=== PATIENT | female | born 1950 | race Caucasian/White ===

== ENCOUNTER 2024-03-05 14:01 | Outpatient (REF) | payer OTHER, SELFPAY | END 2024-03-05 14:02 | disposition home or self-care (01) | LOC: HO.BBR 14:01 | PROVIDERS: Visit Provider Internal Medicine Hematology | DX: D45 Polycythemia vera (principal) | CPT/HCPCS: 85018; 99195 ==

== ENCOUNTER 2024-04-06 09:59 | Outpatient (REF) | payer OTHER, SELFPAY | END 2024-04-06 10:00 | disposition home or self-care (01) | LOC: HO.BBR 09:59 | PROVIDERS: Visit Provider Internal Medicine Hematology | DX: D45 Polycythemia vera (principal) | CPT/HCPCS: 85014; 85018; 99195 ==

== ENCOUNTER 2024-05-06 09:06 | Outpatient (REF) | payer OTHER, SELFPAY | END 2024-05-06 09:07 | disposition home or self-care (01) | LOC: HO.BBR 09:06 | PROVIDERS: Visit Provider Internal Medicine Hematology | DX: D45 Polycythemia vera (principal) | CPT/HCPCS: 85018; 99195 ==

== ENCOUNTER 2024-06-10 09:03 | Outpatient (REF) | payer OTHER, SELFPAY | END 2024-06-10 09:04 | disposition home or self-care (01) | LOC: HO.BBR 09:03 | PROVIDERS: Visit Provider Internal Medicine Hematology | DX: D45 Polycythemia vera (principal) | CPT/HCPCS: 85018; 99195 ==

== ENCOUNTER 2024-07-09 08:55 | Outpatient (REF) | payer OTHER, SELFPAY ==
--- OUTSIDE RECORDS SUMMARY | 2024-07-09 09:07 | XMS_ITS ---
Author Organization [facility] Address [address] [place] [address] Care Team Providers Care Truck Jumper Name Role Phone Georgi Miller MD Primary Care Provider Unavailab Khanh Diaz Unavailable [phone] Mae Montiel Unavailable [phone] REASON FOR VISIT ON Encounters Encounter Location Date Provider Diagnosis [facility] [address] [place] [address] 08/09/2023 Mae Montiel Plan Of Treatment No Information Progress Notes * Thelma GONZALEZDOB:1950 (72 yo F)Acc No.[id number]:08/09/2023 Patient:?Carlos Thelma :1950???Age:72 Y???Sex:Female Address:[address] [place] [address] [place], [address] * true * Date:? Generated for Printi ng/Fajeanieg/eTransmitting on:?07/09/2024 09:07 AM EST
--- OUTSIDE RECORDS SUMMARY | 2024-07-09 09:07 | XMS_ITS ---
[facility] Address [address] [facility] [place] [place] [address] Care Team Providers Care Material Yard Clerk Name Role Phone Georgi Miller MD Primary Care Provider Unavailab Khanh Diaz Unavailable [phone] Allergies Allergen (clinical drug ingredient) Drug/Non Drug Allergy documented on EMR Reaction Allergy Type Onset Date Status morphine Morphine nausea Drug Allergy Active REASON FOR VISIT Painful Toe(s), Open sore Medications Medication SIG (Take, Route, Frequency, Duration) Notes Start Date End Date Status Levothyroxine Sodium Active Stool Softener Activ e Simvastatin Active Aspir-81 Active Synthroid Not-Taking Social History Tobacco Use: Social History Observation Description Date Details (start date - stop date) Never Smoker NA - NA Tobacco Use/Smoking Question Answer Notes Are you a: nonsmoker Additional Findings: Tobacco Non-User Current no n-smoker Alcohol Screen Question Answer Notes Did you have a drink contain ing alcohol in the past year? Yes How often did you have a dri nk containing alcohol in the past year? 2 to 4 times a month (2 points) Points 2 Interpretation Negative Tobacco use other than smoking: Question Answer Notes Are you an other tobacco user? No Problems Problem Type SNOMED Code ICD Code Onset Dates Problem Status W/U Status Risk Notes Problem Atherosclerosis of diomede arteries of the extremities (171435893404255) Atherosclerosis of diomede artery of both lower extremities, with unspecified presence of clinical manifestation (I70.203) Active confirmed Problem Acquired hammer toe of left foot (4473817793792284) Other hammer toe(s) (acquired), left foot (M20.42) Active confirmed Problem Localized, primary osteoarthritis of the ankle and/or foot (867471107) Arthritis of joint of lesser toe, left (M19.072) Active confirmed Vital Signs Height 5ft 6in in 09/19/2023 Weight 146 lbs 09/19/2023 BMI 23.56 kg/m2 09/19/2023 Procedures Procedure Date Ordered Date Performed Result Body Sit e 34583- Debride <25 sq cm 09/19/2023 N/A Encounters Encounter Location Date Provider Diagnosis [facility] [place] [address] [address] 09/19/2023 Khanh Tran Atherosclerosis of n ative artery of both lower extremities, with unspecified presence of clinical manifestation I70.203 ; Ischemic ulcer of left foot, limited to breakdown of skin L97.521 ; Pain in left toe(s) M79.675 ; Other hammer toe(s) (acquired), left foot M20.42 ; Arthritis of joint of lesser toe, left M19.072 and Subluxation of metatarsophalangeal joint of toe, initial encounter S93.149A Assessments Encounter Date Diagnosis (ICD Code) Assessment Notes Treatment Notes Treatment Clinical Notes Section Notes 09/19/2023 Atherosclerosis of diomede artery of both lower extremities, with unspecified presence of clinical manifestation (ICD-10 - I70.203) 09/19/2023 Ischemic ulcer of le ft foot, limited to breakdown of skin (ICD-10 - L97.521) Response to treatment,Clarissa pplicable Patient Educated with: WOUND CARE INSTRUCTIONS. pdf (WOUND CARE INSTRUCTIONS. pdf) 09/19/2023 Pain in left toe(s) (ICD-10 - M79.675) 09/19/2023 Other hammer toe(s) (acquired), left foot (ICD-10 - M20.42) 09/19/2023 Arthritis of joint o f lesser toe, left (ICD-10 - M19.072) 09/19/2023 Subluxation of metatarsophalangeal joint of toe, initial encounter (ICD-10 - S93.149A) Plan Of Treatment Treatment Notes Assessment Notes Ischemic ulcer of left foot, limited to breakdown of skin Patient Educated with: WOUND CARE INSTRUCTIONS.pdf (WOUND CARE INSTRUCTIONS.pdf) Pending Test Test Name Order Date X ray : Foot, left 3V 09/19/2023 03566- Debride <25 sq cm 09/19/2023 Next Appt Details Follow Up: 2 Weeks, Reason: Procedure Notes * Category Sub-Category Detail Notes Debride skin< 25 sq cm Open wound ISCHEMIC: Physician of record performed open wound selective debridement of first 25 sq cm or less, of devitilized necrotic/nonviable soft tissue, fibrin, and exudate extending from the epidermis through the dermis, utilizing sharp dissection with sterile 15 blade, and/or tissue nippers. Sterile antibiotic dressing applied, ANESTHESIA was accomplished TOPICALLY with Lidocaine Hydrochloride Jelly 2 percent. Hemostasis was achieved through direct pressure. Post debridement measurements: 6mm x 5mm x 2mm. Character of the wound post debridement is stable (61373) Progress Notes * Thelma GONZALEZDOB:1950 (72 yo F)Acc No.[id number]:09/19/2023 Progress Notes Patient:?Thelma Gonzalez Provider:?Khanh Tran DPM :1950???Age:72 Y???Sex:Female D ate:09/19/2023 Address:[address] [place] [address] [facility] Pcp:Georgi Miller MD Subjective: * Chief Complaints: * ???Painful Toe(s)Open sore * HPI: ???At Risk footcare:?Pt States Last PCP Visit:?Date?09/12/2023 ???Toe pain:?Nature:?tenderness.?Location:?Left foot , 2nd toe.?Duration:?2 months.?Onset/Cause:?shoe gear?.?Course:?worse.?Aggrevated by:?any pressure, shoes.?Treatments:?rest/alter normal daily activity, change in shoes , medication ( Bactrim from PCP, David acid patches ).?Skin problems:?Treatments:?none.? * ROS:?General/Constitutional:?Nausea?denies.?Vomiting?denies.?Hunger Thirst?denies.?Loss appetite?denies.?Chills?denies.?Fatigue?denies.?Fever?denies.?Night Sweats?denies.?Unexplained weight loss?denies.?Unexplained weight gain?denies.?HEENTM:?Dentures?denies.?Dizziness?denies.?Glasses/contacts?admits.?Retinopathy?de nies.?Blurred/double vision?denies.?TMJ?denies.?Discharge/drainage?denies.?Implants?denies.?Sore throat?denies.?Dental implants?denies.?Hard of hearing ?denies.?Difficulty chewing/swallowing/speaking?denies.?Nose bleeds?denies.?Sore mouth?denies.?Respiratory:?On Oxygen?denies.?Pneumonia/pleurisy?denies.?Bronchitis?denies.?Emphysema?denies.?C oughing?denies.?Cough blood?denies.?Shortness of breath?denies.?Wheezing?denies.?Cardiovascular:?Pacemaker?denies.?MVP?denies.?WPW?denies.?CHF?denies.?Heart attack?denies.?Septal defect?denies.?Rapid beat?denies.?Chest pain ?denies.?Atrial Fib.?denies.?Murmur/Palpitations?denies.?Gastrointestinal:?Hemorrhoids?denies.?Stomach/Abdominal pain?denies.?Dark blood stool?denies.?Irritable bowel ?denies.?Constipation?admits.?Diarrhea?denies.?Hematology:?Swelling?admits.?Clots?denies.?Varicose Veins?admits.?Bruising?denies.?Bleeding problem?denies.?Genitourinary:?Blood urine?denies.?Frequent/Painfu/urination/bladder control?denies.?Kidney stones?denies.?Infection (UTI)?denies.?Nephropathy?denies.?sex trans dis (STD)?denies.?Prostate?denies.?Musculoskeletal:?Hammertoes?admits.?Bunions?denies.?Back Pain?denies.?Muscle Cramps/ Resting?denies.?Muscle cramps / walking?denies.?Generalized aches and pains?denies.?Weakness?denies.?Integ.:?Velarde?denies.?Scars?denies.?Corns/calluses?admits.?Ingrown nails?denies.?Painful nails?denies.?Open Sores?denies.?Rashes?denies.?Neurologic:?Difficulty sleeping?denies.?Brain disorder?denies.?Numbness?denies.?Balance trouble?denies.?Confusion?denies.?Fainting/blackouts?denies.?Tingling?denies.?Tr emors?denies.? * Medical History:? * Surgical History:?C section [id number] gall bladder 04/2023 * Hospitalization/Major Diagno stic Procedure:?No Hospitalization History. * Family History:?Mother: dece ased, diagnosed with Other malignant neoplasm of unspecified site.?Father: , diagnosed with Unspecified heart disease.? * Social History:?Tobacco Use:?Tobacco Use/Smoking?Are you a:?nonsmoker ?Additional Findings: Tobacco Non-User?Current non-smoker ?Tobacco use other than smoking?Are you an other tobacco user??No ???Drugs/Alcohol:?Drugs?Have you used drugs other than those for medical reasons in the past 12 months??No ?Alcohol Screen?Did you have a drink containing alcohol in the past year??Yes ?How often did you have a drink containing alcohol in the past year??2 to 4 times a month (2 points) ?Points?2 ?Interpretation?Negative ???Miscellaneous:?Caffeine: 1-2 cups per day. ?Children: yes. ?Exercise: yes, walking. ?Marital status: . 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 * Medications:?TakingStool Sof tener Aspir-81 Simvastatin Levothyroxine Sodium Taking Stool Softener Taking Aspir-81 Taking Simvastatin Taking Levothyroxine Sodium Not-Taking/PRNSynthroid Medication List reviewed and reconciled with the patientNot-Taking/PRN Synthroid Medication List reviewed and reconciled with the patient * Allergies:?Morphine: nauseay es[Allergies Verified] Objective: * Vitals:?Ht: 5ft 6in, Wt:146, BMI:23.56, Shoe size: 9.5, Ht-cm: 167.64 cm, Wt-k.22 kg. * Examination: ???Vascular: ?DP PULSES:? 0/4, B/L.?PT PULSES:? 0/4, B/L.?CAPILLARY FILL TIME:? delayed, all digits, B/L.?SKIN TEMPERTURE GRADIENT OF THE LOWER EXTERMITIES:? decreased, cool to cool, proximal to distal, B/L.?HAIR GROWTH/TEXTURE/ELASTICITY/TURGOR:? decreased, B/L.?PIGMENTATION:?brawny, B/L.?EDEMA:?2/4 , non-pitting , without aching pain , Leg(s) , Ankle(s) , Foot.?CLAUDICATION:?denies, B/L.?REST PAIN:?denies, B/L.?Dermatologic: ?SKIN FINDINGS:?Skin exam reveals no masses, nor excrescences. The interspaces are clear, B/L.?ULCER:? LOCATION, Dorsal, T1, LEFT, SIZE, 5mm X 3mm X 2mm, BASE, granular, RIM, hyperkeratotic, UNDERMINING, absent, TRACKING, Full thickness breakdown of skin, DRAINAGE, serosanguineous, mild, NECROTIC TISSUE, loosely-adherent, yellow slough, MALODOR, absent, CALOR, absent, ERYTHEMA, absent, PAIN ON PALPATION, present.?Orthopedic: ?MUSCLE STRENGTH:?5/5 all groups in a symmetrical fashion, B/L.?DIGITAL DEFORMITIES:?Digital contracture, PIPJ, 2nd toe, Left, non- reducible with WB or to push-up test , MPJ Contracture/Dorsal subluxation , non-reducible with WB or to push-up test , medial over lapping - T1 , Reveals pain/swelling/redness/enlargement of PIPJ, T1.?FOOTWEAR:? shoe gear properties exacerbate patients foot/toe deformity.?Neurological: ?SENSORY:?Neurological exam reveals intact sensorium, pain sensation normal, vibration sensation intact, pinprick sensation is normal in the lower extremities, Pt denies, anesthesia, burning, paresthesia, tingling, B/L.?General Examination: ?GENERAL APPEARANCE:?Reveals a pleasant, alert, well nourished, well- developed, well hydrated individual, who demonstrates proper attention to hygiene/body habitus, and is in no acute distress, Pt serves as own historian for office visit today.?ORIENTED:?person, place, and time.?X-Rays - IMAGING REPORT: ?Clinical Indication(s):? Evaluate Biomechanical Deformity, Evaluate for Osteomyelitis.?Views:? 3 views of Foot, AP, LO, MO, LEFT.?Findings:? normal bone and soft tissue density consistent for patients age and sex.?Digits:? show asymmetrical joint space narrowing at the PIPJ consistent with clinical finding of hammertoe deformity, show dorsal dislocation of MTPJ.?Fracture:? Negative fractures identified.?Signs of Osteomyelitis?Absent.? Assessment: * Assessment: 1.?Atherosclerosis of diomede artery of both lower extremities, with unspecified presence of clinical manifestation - I70.203?2.?Ischemic ulcer of left foot, limited to breakdown of skin - L97.521 (Primary), Response to treatment,Nonapplicable?3.?Pain in left toe(s) - M79.675?4.?Other hammer toe(s) (acquired), left foot - M20.42, Acute problem, Complicated w/ Multiple Tx Options(4),Dx New problem, Prognosis Uncertain (4)?5.?Arthritis of joint of lesser toe, left - M19.072?6.?Subluxation of metatarsophalangeal joint of toe, initial encounter - S93.149A? Plan: * Treatment: 2.?Pain in left toe(s)?Imaging: X ray : Foot, left 3V * Procedures:?Debride skin< 25 sq cm:?Open wound?ISCHEMIC: Physician of record performed open wound selective debridement of first 25 sq cm or less, of devitilized necrotic/nonviable soft tissue, fibrin, and exudate extending from the epidermis through the dermis, utilizing sharp dissection with sterile 15 blade, and/or tissue nippers. Sterile antibiotic dressing applied, ANESTHESIA was accomplished TOPICALLY with Lidocaine Hydrochloride Jelly 2 percent. Hemostasis was achieved through direct pressure. Post debridement measurements: 6mm x 5mm x 2mm. Character of the wound post debridement is stable (83199).? * Procedure Codes:?93870 X-RAY EXAM OF LEFT FOOT 3V, Modifiers: 26 , [id number] ACTIVE WOUND CARE/20 CM OR < * Preventive Medicine:? ??Counseling:?Discussion:?-04: Office or other outpatient visit for the evaluation and management of a new patient, which required a medically appropriate history and/or examination and MODERATE level of DECISION MAKING for: 1 OR MORE CHRONIC PROBLEM(S) THATS WORSENING, 2 STABLE CHRONIC PROBLEMS, A NEWLY DIAGNOSED PROBLEM WITH UNCERTAIN PROGNOSIS, AN ACUTE COMPLICATED INJURY WITH MULTIPLE TREATMENT OPTIONS, OR AN ACUTE PROBLEM WITH ACCOMPANYING SYSTEMIC SYMPTOMS, THAT POSE(S) A MODERATE RISK OF MORBIDITY. THIS CONDITION MAY ALSO INCLUDE RX DRUG MANAGEMENT, OR A DECISON FOR MINOR SURGERY. The visit on the day of the encounter encompassed interpreting the data and educating the patient as to the nature of their condition, treatment options available according to their individual PMH, meds, allergies, and overall health/living conditions, as well as any potential risks or complications that may occur from a failure to adhere to, and participate in, the recommended course of therapy. The discussion included a complete verbal, and/or written explanation of the examination results, any x-rays taken, the proposed diagnosis, and outline of the treatment plan. A schedule for future care needs was also explained. The patient verbalized an understanding of the instructions at this time and agreed to be an active participant in their treatment. If the patient should think of any questions or concerns after the visit, I have encouraged the patient to call the office.?Digital Surgery:?Digital surgery was discussed with the patient, including the risks of surgery(below), vs not having surgery (persistent pain, deformity, risk for skin ulceration/infection, loss of toe), the potential surg complications, the anesthesia, and the usual post-op course. No guarentees were given. We discussed the potential procedure complications including, but not limited to: pain, swelling, bleeding, scarring, numbness, infection, delayed/non healing, floppy/unstable/shorthened toe, recurrence, failure of the procedure, overcorrection leading to plantarflexed/downward positioned toe, recurrence, need for further surgery, as well as the possibility for loss of the toe itself. We discussed the use of local anesthesia, and the usual post-op course for healing. No guarentees were given. The patient verbally indicated a full understanding of the above conversation, and any other of their questions were answered to their satisfaction. Alternatives to the procedure were also discussed, including conservative care. I also discussed the usual post-operative course and gave no guarantees regarding outcome.?Digital Treatment:?I explained to the patient the possible etiologies of Hammertoes, including genetics/foot type/shoegear/activity level/exercise routine and the risks/benefits of all the different treatment options for their pain including: No treatment at all, Rest, Ice, New/supportive/wider/deeper Shoegear, Digital Padding/Strapping/Taping/Bracing/Gel protective sleeves, Foot/Ankle AFO Bracing, Stretching exercises, Deep Tissue Massage, Arch support/shoe inserts with splay metatarsal padding, and Custom orthoses. I insisted that any digital devices be removed daily and not worn overnight for safety. The patient is to carefully examine the toes daily for any skin irritation while using any splinting or padding device. The advantages and disadvantages of each option were discussed and the patients questions re: shoegear, padding, custom vs prefabricated inserts, activity level, and consistency in home treatment regimens for optimal success were answered to their verbally confirmed satisfaction.?Shoe Gear Counseling:?The patient and I reviewed the types of shoes they should be wearing. My recommendation included obtaining a well-fitted shoe with a good supportive, non-foldable nor twistable sole, plenty of toe/room for the forefoot, and proper arch support. Based on todays examination, I recommended the patient look for new shoes, by having their feet professionally measured. We discussed that generally the best time of the day for a shoe fitting is the afternoon. Different shoes types and brands to best match the patients occupation and vocation were discussed. Specific brand selection will be up to the patient, their individual foot condition/deformities, and fit. The patient and I reviewed the standard new shoe break in period by wearing them for a few hours a day while checking for redness or sores as wear time is increased. The patient verbally confirmed to understanding the information discussed.?Ulcer:?A detailed plan of care was reviewed with the patient. We emphasized the fact that the patient takes on an active participating role in the treatment process and emphasized to them that they are an included, valued, and important member of the wound healing team in order to reach an expedient successful outcome. The patient agreed to follow their medically recommended diet while increasing their protein intake if safely able to do so, maintain proper bodily hydaration, abide by weight-bearing restrictions at all times, quit all current smoking habits if any, and diligently follow any/all dressing change instructions. It was clearly made known to the patient that if they fail to do their part, they will likely extend their course of treatment as well as possibly increase their risk of adverse events including amputation. The patient was instructed on importance of proper wound care consisting of pressure reduction, and proper maintainance of a moist wound environment. The patient is to cleanse the wound with warm soapy water/peroxide/saline, or betadine BID based on product availability. The patient is to apply ( Neosporin, Polysporin, or Triple, ) Antibiotic to the wound and cover with a DSD as directed. The patient was instructed to change dressings according to orders, or PRN saturation, leaks. The patient was instructed to monitor and report any signs or symptoms of infection or any untoward reactions. Precautions Taken: Offloading/Pressure reduction via rest/ limited activity to essential to daily life only, shoe modification, accommodative padding, sharp debridement, and take/apply medication as directed, Debridement frequency as indicated.? * Follow Up:?2 Weeks * Images: * Sign off status: Completed true * Provider:?Khanh Tran DPM Date:?2023 Generated for Uriah mendoza/Richard/Abdielitting on:?07/09/2024 09:06 AM EST History and Physical Notes * HPI (History of Present Illness) Category Sub-Category Detail Notes Category Not es Toe pain Nature: tenderness Location: Left foot , 2nd toe Duration: 2 months Onset/Cause: shoe gear? Course: worse Aggravated by: any pressure, shoes Treatments: rest/alter normal da raymon activity, change in shoes , medication ( Bactrim from PCP, David acid patches ) Skin problems Treatments: none At Risk footcare Pt States Last PCP Visit: Date: 4 Examination Category Sub-Category Detail Notes Category Not es Neurological SENSORY: Neurological exa m reveals intact sensorium, pain sensation normal, vibration sensation intact, pinprick sensation is normal in the lower extremities, Pt denies, anesthesia, burning, paresthesia, tingling, B/L Dermatologic SKIN FINDINGS: Skin exam reveal s no masses, nor excrescences. The interspaces are clear, B/L ULCER: LOCATION, Dorsal, T1 , LEFT, SIZE, 5mm X 3mm X 2mm, BASE, granular, RIM, hyperkeratotic, UNDERMINING, absent, TRACKING, Full thickness breakdown of skin, DRAINAGE, serosanguineous, mild, NECROTIC TISSUE, loosely-adherent, yellow slough, MALODOR, absent, CALOR, absent, ERYTHEMA, absent, PAIN ON PALPATION, present Orthopedic FOOTWEAR: shoe gear proper ties exacerbate patients foot/toe deformity DIGITAL DEFORMITIES: Digital contracture , PIPJ, 2nd toe, Left, non-reducible with WB or to push-up test , MPJ Contracture/Dorsal subluxation , non-reducible with WB or to push-up test , medial over lapping - T1 , Reveals pain/swelling/redness/enlargement of PIPJ, T1 MUSCLE STRENGTH: 5/5 all groups in a symmetrical fashion, B/L General Examination GENERAL APPEARANCE: Reveals a pleasant, alert, well nourished, well-developed, well hydrated individual, who demonstrates proper attention to hygiene/body habitus, and is in no acute distress, Pt serves as own historian for office visit today ORIENTED: person, place, and t ajay Vascular DP PULSES(B): 0/4, B/L PT PULSES(B): 0/4, B/L CAPILLARY FILL TIME: delayed, all digits , B/L TEMPERTURE GRADIENT(C): decreased, cool to cool, proximal to distal, B/L TROPHIC CONDITION-TEXTURE/ELASTICITY/TURGOR/HAIR GROWTH(B): decreased, B/L EDEMA(C): 2/4 , non-pitting , without aching pain , Leg(s) , Ankle(s) , Foot CLAUDICATION(C): denies, B/L REST PAIN: denies, B/L PIGMENTATION: brawny, B/L X-Rays - IMAGING REPORT Findings: normal b one and soft tissue density consistent for patients age and sex Fracture: Negative fractures i dentified Signs of Osteomyelitis Absent Digits: show asymmetrical brenton int space narrowing at the PIPJ consistent with clinical finding of hammertoe deformity, show dorsal dislocation of MTPJ Views: 3 views of Foot, AP, LO, MO, LEFT Clinical Indication(s): Evaluate Biomech anical Deformity, Evaluate for Osteomyelitis
--- OUTSIDE RECORDS SUMMARY | 2024-07-09 09:07 | XMS_ITS | Continuity of Care Document ---
Author Organization [facility] Address [address] [place] [address]- Care Team Providers Care Flush Tester Name Role Phone Georgi Cali MD Primary Care Physician Encounter [facility] NBR [id number] Date(s): 05/26/24 - 06/25/24 [facility] Care [address] [place] [address] Encounter Type: Triage Allergies, Adverse Reactions, Alerts Substance Criticality Severity Reaction Reaction Severity Status morphine Unable to assess criticality Persistent Moderate Active Medications anastrozole 1 mg oral tablet 1 tablet = 1 mg, By Mouth, Daily, # 90 tablet, 3 Refills, Maintenance, 03/12/24 9:29:00 AM EDT, Tablet, [facility]/pharmacy #[id number], Partial fill upon patient request if the prescription is for a schedule II opioid drug., 167, cm, 02/10/24 9:47:00 EDT, Height, 67.4, kg, 02/10/24 9:47:00 EDT, Dry Weight Start Date: 03/12/24 Status: Ordered Quantity: 90.0 Unit: tablet Repeat number: 4 aspirin 81 mg oral tablet 1 tablet = 81 mg, By Mouth, Daily, # 30 tablet, 0 Refills, Maintenance, 05/20/23 10:01:00 AM EDT, Tablet, Partial fill upon patient request if the prescription is for a schedule II opioid drug. Start Date: 05/20/23 Status: Ordered Quantity: 30.0 Unit: tablet Repeat number: 1 Colace Clear = 50 mg, By Mouth, 2 times a day, 0 Refills, Maintenance, 02/10/24 10:17:00 AM EDT, Partial fill upon patient request if the prescription is for a schedule II opioid drug. Start Date: 02/10/24 Status: Ordered Repeat number: 1 ivermectin 1% topical cream 45 Gm, 0 Refill(s), APPLY EVERY DAY FACE ROSACEA., 0 Refills, 06/17/24 2:20:00 PM EST, Partial fillupon patient request if the prescription is for a schedule II opioid drug. Start Date: 06/17/24 Status: Ordered Repeat number: 1 levothyroxine 0.1 mg oral tablet 1 tablet = 100 mcg, By Mouth, Daily in AM, 0 Refills, Maintenance, 01/02/17 10:33:57 AM EDT Start Date: 01/02/17 Status: Ordered Repeat number: 1 penicillin V potassium 500 mg oral tablet 28 each, 0 Refill(s), TAKE 1 TABLET BY MOUTH EVERY SIX HOURS DIRECTED UNTIL EMPTY, 0 Refills, 06/17/24 2:20:00 PM EST, Partial fill upon patient request if the prescription is for a schedule II opioid drug. Start Date: 06/17/24 Status: Ordered Repeat number: 1 simvastatin 20 mg oral tablet 20 mg, 1, tablet, By Mouth, Daily in AM, Refills 0, Maintenance, 01/02/17 10:33:03 AM EDT Start Date: 01/02/17 Status: Ordered Repeat number: 1 Vitamin D 89092 iu oral capsule 50,000 International_Units, By Mouth, Daily, Refills 0, Maintenance, 02/10/24 10:17:00 AM EDT, Partial fill upon patient request if the prescription is for a schedule II opioid drug. Start Date: 02/10/24 Status: Ordered Repeat number: 1 Problem List Condition Confirmation Course Effective Dates Status H ealth Status Informant Essential thrombocytosis Confirmed Active Hyperlipemia Confirmed Active Hypothyroid Confirmed Active Breast cancer, right breast Confirmed Active Osteoporosis Confirmed Active Social History Social History Type Response Smoking Status Never (less than 100 in lifetime) entered on: 10/04/23 Sex Sex Representation Female (finding) Patient Care team information Care Team Personnel Name: Sarah Arthur Position: [facility] RN Member Role: Primary Care Nurse Name: Candi Landeros RN Position: [facility] RN Member Role: Primary Care Nurse Name: Georgi Cali MD Position: [facility] Physician - Primary Care Member Role: PCP Address: [address] [place] [address] Telecom: Name: Rose Alaniz RN Position: [facility] Hospital Zinc Chloride Operator Member Role: Primary Care Nurse Care Team Related Persons Name: GINGER VALENZUELA Name: APRIL HARPER Name: PIPE HARPER Insurance Providers Guarantor name: [facility] Plan Information #: 1 Payer: [facility] NON P HMO Member Number: NA Policy Number: NA Group Number: NA
--- OUTSIDE RECORDS SUMMARY | 2024-07-09 09:07 | XMS_ITS | Continuity of Care Document ---
Author Organization [facility] Address [address] [place] [address]- Care Team Providers Care Hand Clipper Name Role Phone Georgi Cali MD Primary Care Physician [id number] Date(s): 05/20/24 - 06/19/[facility] [address] [place] [address] Attending Physician: AdmtrMayelin Admitting Physician: AdmtrMayelin Referring Physician: Admtr, Ar8 Encounter Type: Triage Allergies, Adverse Reactions, Alerts Substance Criticality Severity Reaction Reaction Severity Status morphine Unable to assess criticality Persistent Moderate Active Medications anastrozole 1 mg oral tablet 1 tablet = 1 mg, By Mouth, Daily, # 90 tablet, 3 Refills, Maintenance, 03/12/24 9:29:00 AM EDT, Tablet, [facility]/pharmacy #[id number], Partial fill upon patient request if [...] Status: Ordered Repeat number: 1 Vitamin D 57017 iu oral capsule 50,000 International_Units, By Mouth, [...] on: 10/04/23 Sex Sex Representation Female (finding) Laboratory * Event Display: Non [facility] Lab Results Authored Date: * Event Display: Non [facility] Lab Results Authored Date: * Event Display: Non [facility] Lab Results Authored Date: * Event Display: Non [facility] Lab Results Authored Date: Patient Care team information Care Team Personnel Name: Solomon Arthurlene Position: [facility] Onco RN Member Role: Primary Care Nurse Name: Candi Landeros RN Position: [facility] Onco RN Member Role: Primary Care Nurse Name: Georgi Cali MD Position: [facility] Physician - Primary Care Member Role: PCP Address: [address] [place] [address] Telecom: Name: Rose Alaniz RN Position: [facility] Planing Machine Operator Member Role: Primary Care Nurse Care Team Related Persons Name: GINGER VALENZUELA Name: APRIL HARPER Name: PIPE HARPER Insurance Providers Guarantor name: KENNEDY HARPER [facility] Plan Information #: 1 Payer: [facility] NON B[employer] HMO Member Number: NA Policy Number: NA Group Number: NA
--- OUTSIDE RECORDS SUMMARY | 2024-07-09 09:07 | XMS_ITS ---
Author Organization [facility] Address [address] [facility] [place] [address] Care Team Providers Care Imaging Specialist Name Role Phone Georgi Miller MD Primary Care Provider Unavailab Khanh Diaz Unavailable [phone] Allergies Allergen (clinical drug ingredient) Drug/Non Drug Allergy documented on EMR Reaction Allergy Type Onset Date Status morphine Morphine nausea Drug Allergy Active REASON FOR VISIT Open sore Medications Medication SIG (Take, Route, Frequency, Duration) Notes Start Date End Date Status Stool Softener Activ e Aspir-81 Active Simvastatin Active Levothyroxine Sodium Active Synthroid Not-Taking Social History Tobacco Use: [...] Are you an other tobacco user? No Vital Signs Height 5ft 6 in in 09/30/2023 Weight 146 lbs 09/30/2023 BMI 23.56 kg/m2 09/30/2023 Encounters Encounter Location Date Provider Diagnosis [facility] [place] [address] [facility] [address] [place] [address] 09/30/2023 Khanh Tran Ischemic ulcer of left foot, limited to breakdown of skin L97.521 Assessments Encounter Date Diagnosis (ICD Code) Assessment Notes Treatment Notes Treatment Clinical Notes Section Notes 09/30/2023 Ischemic ulcer of left foot, limited to breakdown of skin (ICD-10 - L97.521) Response to treatment,Impro vement Plan Of Treatment Next Appt Details Follow Up: prn, Reason: Progress Notes * Thelma GONZALEZDOB:1950 (72 yo F)Acc No.[id number]:09/30/2023 Progress Notes Patient:?Thelma Gonzalez Provider:?Khanh Tran DPM :1950???Age:72 Y???Sex:Female D ate:09/30/2023 Address:[address] [place] [address] [id number] Pcp:Georgi Miller MD Subjective: * Chief Complaints: * ???Open sore * HPI: ???Skin problems:?Treatments:?Local care consisting of daily distilled water wound cleanse, topical antibiotic as recommended, application of sterile dressing, offloading/pressure reduction via rest, shoe modification, insert modification, accommodative padding, and surgical debridement.? * ROS:?General/Constitutional:?Nausea?denies.?Vomiting?denies.?Hunger Thirst?denies.?Loss appetite?denies.?Chills?denies.?Fatigue?denies.?Fever?denies.?Night Sweats?denies.?Unexplained weight loss?denies.?Unexplained [...] * Medical History:? * Surgical History:?C section [id number] gall bladder 04/2023 * Hospitalization/Major Diagno stic [...] ?Exercise: yes, walking. ?Marital status: . ?Occupation: [employer]. * Medications:?TakingStool Sof tener Aspir-81 Simvastatin Levothyroxine Sodium Taking Stool Softener Taking Aspir-81 Taking Simvastatin Taking Levothyroxine Sodium Not-Taking/PRNSynthroid Medication List reviewed and reconciled with the patientNot-Taking/PRN Synthroid Medication List reviewed and reconciled with the patient * Allergies:?Morphine: nauseay es[Allergies Verified] Objective: * Vitals:?Ht:5ft 6 in, Wt:146, BMI:23.56, Shoe size:9.5, Ht-cm: 167.64 cm, Wt-k.22 kg. * Examination: ???Dermatologic: ?ULCER:?NOW shows complete re-epithelialization, Dorsal, T1, LEFT.? Assessment: * Assessment: 1.?Ischemic ulcer of left fo ot, limited to breakdown of skin - L97.521 (Primary), Response to treatment,Improvement? Plan: * Treatment: * Procedure Codes:? * Preventive Medicine:? ??Counseling:?Discussion:?-12: Office or other outpatient visit for the evaluation and management of an established patient, which required a medically appropriate history and/or examination and STRAIGHTFORWARD level of MEDICAL DECISION MAKING, 1 SELF-LIMITED OR MINOR PROBLEM, MINIMAL- NO AMOUNT/COMPLEXITY OF DATA TO BE REVIEWED/ANALYZED, AND MINIMAL RISK OF COMPLICATION/MORBIDITY. The visit on the day of the [...] have encouraged the patient to call the office.?Ulcer:?PREVENTIVE STRATEGIES were reviewed with the patient to avoid recurrent ulceration. A set of verbal and written instructions regarding proper daily diabetic footcare techniques was discussed and dispensed. The patient is to pay close attention to skin hydration by maintaining proper moisturization through correct water consumption and consistent application of skin lotions/creams/ointments. They are also to perform regular visual and tactile foot inspections for any interruption in skin integrity including cracks, open lesions, and immediately report to the office any sign of infection such as redness/malodor/drainage/swelling. We discussed and recommended practices and procedures regarding regular shoe and insert evaluations for the presence of foreign bodies as well as for any irregular shoe or insert wear. We reinforced the importance for the patient to adhere to wearing their orthopedic shoes and pressure accommodative innersoles whenever walking. We stressed the significant value for the patient to remain consistent concerning their medically prescribed diet, participate in regular nonweight-bearing exercise (seated weights, exercise bike, or swimming), and keep their scheduled at risk foot care podiatric appointments. We also reviewed the possible role for additional Rx foot/leg bracing or surgical intervention when/if medically warranted.? * Follow Up:?prn * Images: * Sign off status: Completed true * Provider:?Khanh Tran DPM Date:?2023 Generated for Uriah mendoza/Richard/Abdielitting on:?07/09/2024 09:06 AM EST History and Physical Notes * HPI (History of Present Illness) Category Sub-Category Detail Notes Category Not es Skin problems Treatments: Local care consi sting of daily distilled water wound cleanse, topical antibiotic as recommended, application of sterile dressing, offloading/pressure reduction via rest, shoe modification, insert modification, accommodative padding, and surgical debridement Examination Category Sub-Category Detail Notes Category Not es Dermatologic ULCER: NOW shows comple te re-epithelialization, Dorsal, T1, LEFT
--- OUTSIDE RECORDS SUMMARY | 2024-07-09 09:07 | XMS_ITS | Patient Health Record ---
Author Organization [facility] Address [address] [facility] [place] [address] Care Team Providers Care Linter Saw Sharpener Name Role Phone Georgi Miller MD Primary Care Provider Unavailab Khanh Diaz Unavailable [phone] Mae Montiel Unavailable [phone] Allergies Allergen (clinical drug ingredient) Drug/Non Drug Allergy documented on EMR Reaction Allergy Type Onset Date Status morphine Morphine nausea Drug Allergy Active Reason For Referral No Information Medications Medication SIG (Take, Route, Frequency, Duration) [...] Problem Status W/U Status Risk Notes Problem Acquired hammer toe of left foot (0907715370708531) Other hammer toe(s) (acquired), left foot (M20.42) Active confirmed Problem Atherosclerosis of little shell tribe arteries of the extremities (186042954512826) Atherosclerosis of little shell tribe artery of both lower extremities, with unspecified presence of clinical manifestation (I70.203) Active confirmed Problem Localized, primary osteoarthritis of the ankle and/or foot (667165361) Arthritis of joint of lesser toe, left (M19.072) Active confirmed Vital Signs Height 5ft 6 in in 09/30/2023 Weight 146 lbs 09/30/2023 BMI 23.56 kg/m2 09/30/2023 Procedures Procedure Date Ordered Date Performed Result Body Sit e 64281- Debride <25 sq cm 09/19/2023 N/A Encounters Encounter Location Date Provider Diagnosis [address] [address] 09/19/2023 Khanhjessica Ricardoier Atherosclerosis of n ative artery of both lower extremities, with unspecified presence of clinical manifestation I70.203 ; Ischemic ulcer of left foot, limited to breakdown of skin L97.521 ; Pain in left toe(s) M79.675 ; Other hammer toe(s) (acquired), left foot M20.42 ; Arthritis of joint of lesser toe, left M19.072 and Subluxation of metatarsophalangeal joint of toe, initial encounter S93.149A [address] [address] 09/30/2023 Khanh Tran Ischemic ulcer of le ft foot, limited to breakdown of skin L97.[address] [address] 08/01/2023 Mae Montiel [address] [address] 08/09/2023 Mae Montiel [facility] [address] [place] [address] 08/09/2023 Mae Montiel Assessments Encounter Date Diagnosis (ICD Code) Assessment Notes Treatment Notes Treatment Clinical Notes Section Notes 09/19/2023 Atherosclerosis of little shell tribe artery of both lower extremities, with unspecified presence of clinical manifestation (ICD-10 - I70.203) 09/19/2023 Ischemic ulcer of le ft foot, limited to breakdown of skin (ICD-10 - L97.521) Response to treatment,Clarissa pplicable Patient Educated with: WOUND CARE INSTRUCTIONS. pdf (WOUND CARE INSTRUCTIONS. pdf) 09/30/2023 Ischemic ulcer of le ft foot, limited to breakdown of skin (ICD-10 - L97.521) Response to treatment,Impr ovement 09/19/2023 Pain in left toe(s) (ICD-10 - M79.675) 09/19/2023 Other hammer toe(s) (acquired), left foot (ICD-10 - M20.42) 09/19/2023 Arthritis of joint o f lesser toe, left (ICD-10 - M19.072) 09/19/2023 Subluxation of metatarsophalangeal joint of toe, initial encounter (ICD-10 - S93.149A) Plan Of Treatment Pending Test Test Name Order Date X ray : Foot, left 3V 09/19/2023 64744- Debride <25 sq cm 09/19/2023 Insurance Providers Payer Name Payer Address Payer Phone Subscriber Number Group Number Insured Name Patient Relationship to Insured Coverage Start Date Coverage End Date [facility] [address] [place] [address] [id number] Thelma Gonzalez Self - patient is the insured Medical (General) History Medical History History ICD Code Mumps Chicken pox Hernia Back,Hip,and Knee pain thyroid Measles Surgical History Surgery Date(Month/Year) C section [id number] hysterectomy gall bladder 04/2023
== END 2024-07-09 08:56 | disposition home or self-care (01) ==
LOC: HO.BBR 08:55
PROVIDERS: Visit Provider Internal Medicine Hematology
DX: D45 Polycythemia vera (principal)
CPT/HCPCS: 85014; 85018; 99195